=== PATIENT | female | born 1965 | race Caucasian/White ===

== ENCOUNTER 2023-06-17 08:30 | Emergency (ER) | payer BC, SELFPAY ==
--- NOTE | 2023-06-17 | ECG_ITS ---
Test Reason : CHEST PAIN Blood Pressure : / mmHG Vent. Rate : 078 BPM Atrial Rate : 078 BPM P-R Int : 166 ms QRS Dur : 082 ms QT Int : 382 ms P-R-T Axes : 071 007 029 degrees QTc Int : 435 ms Normal sinus rhythm with sinus arrhythmia Possible Left atrial enlargement Low voltage QRS Borderline ECG No previous ECGs available Referred By: Generic ED Physician Electronically Signed By:JASON ISRAEL
--- NOTE | ~2023-06-17 | XR_ITS ---
EXAMINATION: XR CHEST CLINICAL INFORMATION: Chest pain COMPARISON: None available. TECHNIQUE: 2 views of the chest were obtained. FINDINGS: Cardiac silhouette is normal in size. The lungs are well aerated. There is no lobar consolidation. No pleural effusion or pneumothorax. No acute osseous abnormality. XR/XR chest 2V IMPRESSION: No acute pulmonary pathology.
[2023-06-17 08:47] VITALS: BP 126/72; PULSE 61; RESP 18; TEMP 36.2; O2SAT 100; BMI 23.9
--- NOTE | 2023-06-17 09:00 | ED.CHESTPAIN ---
HPI - Chest Pain General Chief Complaint: Chest Pain Stated Complaint: Chest Pain Time Seen by Provider: 06/17/23 08:56 Source: patient and old records reviewed Mode of arrival: ambulatory History of Present Illness HPI narrative: 58 yo female with PMH of kidney and bladder cancer s/p L nephrectomy still undergoing bladder chemo but no systemic chemo or XRT. She was started on oral hormone replacement therapy yesterday took two doses. 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 She did help pack up her brother yesterday no symptoms no heavy lifting. Started to have odd pain in L upper chest at 10pm yesterday no associated symptoms. Went to bed woke up at 8am with similar symptoms feels more pain with breathing and her L arm felt tingly. Has no known CAD, no travel, procedures. Her mom had OK in her 70s. MD complaint: chest pain Onset (ago): day(s) (last night 10pm) Timing of current episode: episodic Prior episodes: No Onset: during rest Pain location: left chest Pain radiation: left arm Severity: mild Quality: aching Relieving factors: nothing Exacerbating factors: inspiration Context: other (undergoing bladder chemo, oral hormone therapy) Treatment prior to arrival: none Related Data Allergies Allergy/AdvReac Type Severity Reaction Status Date / Time No Known Allergies Allergy Verified 06/17/23 08:52 [No Known Allergies*] Review of Systems Review of Systems: Constitutional : No Weight loss, No Fever, No Chills ENT/Mouth : No sore throat, No Rhinorrhea Eyes: No Eye Pain, No Swelling Cardiovascular : pos Chest Pain, no SOB, no Dyspnea on Exertion, No Orthopnea, No Edema, No Palpitations Respiratory : No Cough, No Sputum Gastrointestinal : no Nausea, No Vomiting, No Diarrhea, No abdominal Pain, No Hematochezia, No Melena Genitourinary : No Dysuria, No Urinary Frequency Musculoskeletal : No joint pain, No Myalgias, No Joint Swelling Skin : No Skin Lesions, No rash Neuro : No Weakness, No Numbness, No Dizziness, No Headache Psych : No Anxiety/Panic, No Depression All other systems reviewed and are negative PMFSH Past Medical History Attestation statement: The following information was validated with the patient. Source: old records reviewed Medical History (Updated 06/17/23 @ 11:30 by Mine Reddy DO) Bladder cancer Renal cell carcinoma Social History Social History (Updated 06/17/23 @ 09:36 by Mine Reddy DO) Patient Tobacco Use Status: Never used Tobacco Use of substances other than those prescribed or required for medical reasons: No Advance Directives: No Advance Directives Information Provided: No Do you have a plan to hurt others: No Plan Physical Exam Vital Signs: Vital Signs: Last Vital Signs Temp 97.2 F 06/17/23 08:47 Pulse 55 06/17/23 11:14 Resp 11 L 06/17/23 11:14 BP 123/70 06/17/23 11:14 Pulse Ox 100 06/17/23 11:14 O2 Del Method Room Air 06/17/23 11:14 BMI result Body Mass Index 23.9 Appearance: Alert. Oriented X3. No acute distress. Eyes: Pupils equal, round and reactive to light. ENT: Pharynx normal. Neck: Normal inspection. Neck supple. CVS: Normal heart rate and rhythm. Pulses normal. Respiratory: No respiratory distress. Breath sounds normal. Abdomen: Soft and non-tender. Skin: Skin warm and dry. Normal skin color. Normal skin turgor. Extremities: No lower extremity edema. No calf ttp Neuro: Oriented X 3. No motor deficit. No sensory deficit. Medical Decision Making Medical Decision Making [facility] Narrative: 58 yo female with PMH of kidney and bladder cancer s/p L nephrectomy still undergoing bladder chemo here with c/o L sided pleuritic chest pain starting last night - she is in remission but still reports installation of bladder chemo. She is also on newly HRT - at this time given she has no symptoms with exertion or her weekly workouts ACS seems unlikely it could be MSK or in her case VTE I am going to order ddimer, EKG, troponin, CXR. Differential Diagnosis Differential Diagnoses: The differential diagnosis associated with the presentation includes VTE, unusual for ACS no symptoms of chest pain with exertion Admission/Observation Consideration of admission/observation: Escalation of care including admission/observation considered EKG negative ddimer negative trop flat x 2, CXR normal can follow up with her doctor Lab Data [facility] Lab Attestation statement: I reviewed the patient's lab results. trop flat, ddimer negative plts 74 which is good for her she has hx of ITP 06/17/23 08:43 06/17/23 08:43 Labs: Lab Results 06/17/23 06/17/23 06/17/23 Range/Units 08:43 09:12 10:39 WBC 5.5 (4.8-10.8) X10*3/uL RBC 4.02 L (4.20-5.50) X10*6/uL Hgb 12.1 (12.0-16.0) g/dl Hct 36.6 L (37.0-47.0) % MCV 91.0 (80.0-98.0) fL MCH 30.1 (27.0-33.0) pg MCHC 33.1 (31.0-35.0) g/dl RDW 13.4 (11.0-16.0) % Plt Count 74 L (160-400) X10*3/uL MPV Not Reportable Immature Gran % (Auto) 0.2 (0.0-0.4) % Neut % (Auto) 52.6 (45-73) % Lymph % (Auto) 33.7 (20-40) % [place] % (Auto) 9.5 (2-11) % Eos % (Auto) 3.3 (0-4) % Baso % (Auto) 0.7 (0-2) % Lymph # (Auto) 1.8 (1.2-4.9) X10*3/uL [place] # (Auto) 0.5 (0.1-1.2) X10*3/uL Eos # (Auto) 0.2 (0.0-0.4) X10*3/uL Baso # (Auto) 0.0 (0.0-0.2) X10*3/uL Abs Immat Gran (auto) 0.01 (0.00-0.03) X10*3/uL Absolute Neuts (auto) 2.9 (2.0-8.3) x10*3/uL Absolute Nucleated RBC 0.000 (0.0-0.012) X10*3/uL Nucleated RBC % (auto) 0.0 (0.0-0.2) /100WBC Smear Tech's Comments VERIFIED D-Dimer High Sensitivty 193 NG/ML Sodium 141 (135-145) mmol/L Potassium 4.0 (3.3-5.1) mmol/L Chloride 106 (96-108) mmol/L Carbon Dioxide 23 (22-29) mmol/L Anion Gap 16 (12-20) BUN 11 (9-16) mg/dL Creatinine 1.03 (0.5-1.4) mg/dL Estim Creat Clear Calc 57.1 Estimated GFR 55 Random Glucose 121 H (60-115) mg/dL Calcium 9.9 (8.4-10.2) mg/dL Total Bilirubin 0.8 (0.0-1.0) mg/dL AST 17 (5-31) U/L ALT 10 (0-31) U/L Alkaline Phosphatase 118 H (39-117) U/L Troponin I High Sens < 2.7 < 2.7 (<3.5-17.0) ng/L Total Protein 7.2 (6.5-8.0) g/dL Albumin 4.1 (3.5-5.0) g/dL Independent Interpretation I performed an independent interpretation of an: EKG and Plain X-Ray (normal ) Interpretation: Rate: 78 Rhythm: NSR [place]: left Normal P waves. Normal MYRNA. Normal QRS complex. ST T wave : no FLOR[place], inverted t waves III qTC: 435 prior studies: no acute ischemia The study has been interpreted contemporaneously by me. . Radiology Impression Discussion of test interpretation with radiology: I have reviewed the radiologist's reading. External Record Review External record reviewed: Inpatient record Discharge Plan Discharge Clinical Impression: Atypical chest pain Patient Disposition: Home, Self-Care Instructions: Chest Pain (ED) Additional Instructions: your EKG and chest xray were normal heart tests troponin normal x 2 ddimer negative platelets 74 follow up with your doctor tomorrow to schedule outpatient stress test return for worsening symptoms or concerns. Print Language: Scottish
[2023-06-17 09:14] LABS: Alanine Aminotransferase 10 U/L (0-31); Albumin Level 4.1 g/dL (3.5-5.0); Alkaline Phosphatase 118 U/L (39-117); Anion Gap 16 (12-20); Aspartate Amino Transferase 17 U/L (5-31); Bilirubin Total 0.8 mg/dL (0.0-1.0); Blood Urea Nitrogen 11 mg/dL (9-16); Calcium 9.9 mg/dL (8.4-10.2); Carbon Dioxide 23 mmol/L (22-29); Chloride 106 mmol/L (96-108); Creatinine Clr Calc Pharmacy 57.1; Estimated Glomerular Filt Rate 55; Glucose Random 121 mg/dL (60-115); Hemoglobin 12.1 g/dl (12.0-16.0); SCAN SMEAR FLAG 1; Sodium 141 mmol/L (135-145); Total Protein 7.2 g/dL (6.5-8.0)
[2023-06-17 09:16] LABS: Basophils Percent Auto 0.7 % (0-2); Eosinophils Absolute Auto 0.2 X10*3/uL (0.0-0.4); Eosinophils Percent Auto 3.3 % (0-4); Hematocrit 36.6 % (37.0-47.0); Imm Gran Abs Auto 0.01 X10*3/uL (0.00-0.03); Imm Gran Pct Auto 0.2 % (0.0-0.4); Lymphocytes Absolute Auto 1.8 X10*3/uL (1.2-4.9); Lymphocytes Percent Auto 33.7 % (20-40); MANUAL DIFF FLAG SCAN; Mean Corpuscular HGB Conc 33.1 g/dl (31.0-35.0); Mean Corpuscular Hemoglobin 30.1 pg (27.0-33.0); Monocytes Absolute Auto 0.5 X10*3/uL (0.1-1.2); Monocytes Percent Auto 9.5 % (2-11); Neutrophils Absolute Auto 2.9 x10*3/uL (2.0-8.3); Neutrophils Percent Auto 52.6 % (45-73); PLT CLUMP 1; Red Blood Count 4.02 X10*6/uL (4.20-5.50); Red Cell Distribution Width 13.4 % (11.0-16.0)
[2023-06-17 09:26] LABS: D Dimer High Sensitivity 193 NG/ML
[2023-06-17 09:26] LABS: Troponin-I High Sensitivity < 2.7 ng/L (<3.5-17.0)
[2023-06-17 09:29] LABS: PLT ABN DIST 1; Platelet Count 74 X10*3/uL (160-400); White Blood Count 5.5 X10*3/uL (4.8-10.8)
[2023-06-17 09:32] LABS: SLIDE REVIEW VERIFIED
[2023-06-17 11:14] VITALS: BP 123/70; PULSE 55; RESP 11; O2SAT 100
[2023-06-17 11:18] LABS: Troponin-I High Sensitivity < 2.7 ng/L (<3.5-17.0)
[2023-06-17 11:42] VITALS: BP 118/68; PULSE 45; RESP 12; TEMP 36.7; O2SAT 100
== END 2023-06-17 11:43 | disposition home or self-care (01) ==
PROVIDERS: Emergency Provider Emergency Medicine; PCP Nurse Practitioner Family
DX: R07.89 Other chest pain (principal); C67.9 Malignant neoplasm of bladder, unspecified; Z85.528 Personal history of other malignant neoplasm of kidney; Z90.5 Acquired absence of kidney
CPT/HCPCS: 36415; 71046; 80053; 84484; 85025; 85379; 93005; 99283; 99285

== ENCOUNTER → 2023-06-17 08:36 | Outpatient (BNV) | payer BC, SELFPAY | PROVIDERS: Emergency Provider Emergency Medicine; PCP Nurse Practitioner Family; Visit Provider Internal Medicine | DX: R07.9 Chest pain, unspecified (principal) | CPT/HCPCS: 93010 ==